=== PATIENT | male | born 1980 | race African-American/Black ===

== ENCOUNTER 2017-02-05 16:51 | Emergency (ER) | payer OTHER ==
[~2017-02-05] VITALS: Ht 172.7 cm; Wt 99.7 kg
[2017-02-05 16:56] VITALS: BP 136/77
== END 2017-02-05 18:41 | disposition home or self-care (01) ==
LOC: EME 16:51
DX: L84 Corns and callosities (principal); M79.674 Pain in right toe(s); Z83.3 Family history of diabetes mellitus
CPT/HCPCS: 99281; 99284